=== PATIENT | male | born 1990 | race Hispanic/Latino ===

== ENCOUNTER 2016-11-28 17:28 | Emergency (ER) | payer OTHER ==
[~2016-11-28] VITALS: Ht 170.2 cm; Wt 65.9 kg
--- NOTE | 2016-11-28 19:55 | ECGEPIP ---
Stationary ECG Study [facility] - ED Test Date: 2016-11-28 Pat Name: SANDRA SZYMANSKI Department: Room: - Gender: M [employer] Supervisor: CORINA : 1990 Requested By: FARHAT Dennison Order Number: [id number] Reading MD: Prince Dumont Measurements Intervals [place] Rate: 56 P: 44 [place]: 183 QRS: 60 QRSD: 90 T: 51 QT: 373 QTc: 360 Interpretive Statements SINUS BRADYCARDIA EARLY REPOLARIZATION NO PRIORS Electronically Signed On 11-28-2016 19:55:07 EDT by Prince Dumont
[2016-11-28 21:10] LABS: BASO % 0.6 % (0.0-1.0); EOS # 0.4 K/mm3 (0.0-0.50); EOS % 4.7 % (0.0-3.0); LARGE UNSTAINED CELL # 0.2 K/mm3 (0.0-0.4); LARGE UNSTAINED CELL % 1.7 % (0.0-4.0); LYMPH # 2.1 K/mm3 (1.5-6.5); LYMPH % 26.2 % (24.0-44.0); MEAN CORPUSCULAR HGB CONC 33.1 g/dl (32.0-36.5); MEAN CORPUSCULAR VOLUME 87.7 fl (80.0-96.0); MONO # 0.4 K/mm3 (0.0-0.8); MONO % 4.4 % (0.0-5.0); NEUTROPHILS # 5.5 K/mm3 (1.8-7.7); NEUTROPHILS % 62.4 % (36.0-66.0); PLATELET COUNT, AUTOMATED 225 k/mm3 (150-450); RED CELL DISTRIBUTION WIDTH 12.8 % (11.5-14.5); WHITE BLOOD COUNT 8.8 K/mm3 (4.0-10.0)
[2016-11-28 21:24] LABS: ANION GAP 6 MEQ/L (8-16); BLOOD UREA NITROGEN 19 MG/DL (7-18); CALCIUM LEVEL 9.1 MG/DL (8.5-10.1); CARBON DIOXIDE LEVEL 28 MEQ/L (21-32); CHLORIDE LEVEL 105 MEQ/L (98-107); CREATININE FOR GFR 0.86 MG/DL (0.70-1.30); GLOMERULAR FILTRATION RATE > 60.0 (>60); GLUCOSE, FASTING 91 MG/DL (70-105); POTASSIUM SERUM 4.1 MEQ/L (3.5-5.1); SODIUM LEVEL 139 MEQ/L (136-145)
[2016-11-28 22:31] VITALS: BP 103/58
--- NOTE | 2016-11-29 07:24 | REP ---
PA and lateral chest: There are no comparisons. The lung wallace are clear. The cardiac size is normal The shanita, mediastinum, and bony thorax are unremarkable. Impression: Negative PA and lateral chest. Signed by Omar Cunha MD 11/29/2016 07:15 A
== END 2016-11-28 22:32 | disposition home or self-care (01) ==
LOC: M ED 17:28
DX: R07.89 Other chest pain (principal)

== ENCOUNTER 2016-12-06 14:50 | Emergency (ER) | payer OTHER ==
[~2016-12-06] VITALS: Ht 170.2 cm; Wt 65.9 kg
[2016-12-06 15:31] LABS: MEAN CORPUSCULAR HEMOGLOBIN 30.1 pg (27.0-33.0); MEAN CORPUSCULAR HGB CONC 34.2 g/dl (32.0-36.5); RED CELL DISTRIBUTION WIDTH 12.6 % (11.5-14.5); WHITE BLOOD COUNT 7.4 K/mm3 (4.0-10.0)
[2016-12-06 15:46] LABS: ALBUMIN/GLOBULIN RATIO 1.08 (1.00-1.93); ALKALINE PHOSPHATASE 89 U/L (45-117); ALT/SGPT 25 U/L (12-78); ANION GAP 10 MEQ/L (8-16); AST/SGOT 21 U/L (15-37); BILIRUBIN,DIRECT < 0.1 MG/DL (0.0-0.2); BILIRUBIN,TOTAL 0.4 MG/DL (0.2-1.0); BLOOD UREA NITROGEN 13 MG/DL (7-18); CARBON DIOXIDE LEVEL 26 MEQ/L (21-32); CHLORIDE LEVEL 99 MEQ/L (98-107); CREATININE FOR GFR 0.79 MG/DL (0.70-1.30); GLOMERULAR FILTRATION RATE > 60.0 (>60); GLUCOSE, FASTING 88 MG/DL (70-105); POTASSIUM SERUM 3.5 MEQ/L (3.5-5.1); SODIUM LEVEL 135 MEQ/L (136-145); TOTAL PROTEIN 7.7 GM/DL (6.4-8.2)
[2016-12-06] MEDS ORDERED: ISOVUE-370 76% 100ML VIAL (Q9967) As Ordered ONE (15:50)
--- NOTE | 2016-12-06 16:26 | REP ---
CT of the chest with IV contrast, CT pulmonary artery angiography: Comparison is a plain film PA and lateral study of the chest dated 11/28/2016. There are no emboli in the pulmonary trunk or central pulmonary arteries. There are no emboli in the lobe or segment branches. There are no infiltrates, effusions or masses. The lung wallace otherwise clear. There is no mediastinal, hilar or axillary adenopathy. The thoracic aorta is unremarkable. Cardiac size is normal. The visualized upper abdominal contents are unremarkable. Impression: Essentially negative CT study of the chest. There are no pulmonary emboli. Signed by Omar Cunha MD 12/06/2016 04:18 P
[2016-12-06] MEDS ORDERED: KETOROLAC 30 MG/ML VIAL (J1885) IV ONE (16:45)
[2016-12-06] MEDS ORDERED: IBUP80TA PO (17:14)
[2016-12-06 17:51] VITALS: BP 124/74
--- NOTE | 2016-12-06 19:13 | ECGEPIP ---
Stationary ECG Study [facility] - ED Test Date: 2016-12-06 Pat Name: SANDRA SZYMANSKI Department: Room: - Gender: M [employer] Supervisor: rain : 1990 Requested By: Bonnie Grace Order Number: [id number] Reading MD: Prince Dumont Measurements Intervals [place] Rate: 52 P: 48 [place]: 174 QRS: 50 QRSD: 89 T: 44 QT: 408 QTc: 382 Interpretive Statements SINUS BRADYCARDIA BENIGN EARLY REPOLARIZATION SIMILAR TO 11/28/16 Electronically Signed On 12-06-2016 19:12:36 EDT by Prince Dumont
== END 2016-12-06 17:52 | disposition home or self-care (01) ==
LOC: M ED 14:50 → EDBD 14:50 → M ED 17:52
DX: M94.0 Chondrocostal junction syndrome [Tietze] (principal); R00.1 Bradycardia, unspecified
CPT/HCPCS: 36415; 71275; 80048; 80076; 82550; 82553; 85027; 85652; 86140; 93005; 96374; 99284; J1885; Q9967